=== PATIENT | female | born 1985 | race American Indian/Alaskan Native ===

== ENCOUNTER 2018-11-01 16:44 | Emergency (ER) | payer SELFPAY ==
--- NOTE | 2018-11-01 17:21 | Emergency Department Report ---
Blank Doc - Documentation Documentation: 33-year-old female that presents with syncopal episdoe with headache and dizzi ness. This initial assessment/diagnostic orders/clinical plan/treatment(s) is/are subject to change based on patient's health status, clinical progression and re- assessment by fellow clinical providers in the ED. Further treatment and workup at subsequent clinical providers discretion. Patient/guardians urged not to elope from the ED as their condition may be serious if not clinically assessed and managed. Initial orders include: 1- Patient sent to [facility] for further evaluation and treatment 2- EKG 3- labs 4- CT head
[2018-11-01 17:23] VITALS: BP 108/69
[2018-11-01 18:01] LABS: BUN/Creatinine Ratio 15; Blood Urea Nitrogen 9 mg/dL (7-17); Calcium 9.1 mg/dL (8.4-10.2); Hemolysis Index 0
[2018-11-01 18:35] LABS: Basophils % (Auto) 0.4 % (0.0-1.8); Eosinophils # (Auto) 0.1 K/mm3 (0.0-0.4); Eosinophils % (Auto) 2.7 % (0.0-4.3); Hematocrit 30.8 % (30.3-42.9); Hemoglobin 9.7 gm/dl (10.1-14.3); Lymphocytes # (Auto) 1.3 K/mm3 (1.2-5.4); Lymphocytes % (Auto) 33.2 % (13.4-35.0); Mean Corpuscular HGB Conc 32 % (30-34); Mean Corpuscular Volume 72 fl (79-97); Monocytes # (Auto) 0.3 K/mm3 (0.0-0.8); Monocytes % (Auto) 8.9 % (0.0-7.3); Platelet Count 224 K/mm3 (140-440); Red Cell Distribution Width 17.3 % (13.2-15.2)
--- NOTE | 2018-11-01 19:24 | Cat Scan Report ---
CT head/brain wo con INDICATION: Syncope. TECHNIQUE: Routine CT head without contrast. All CT scans at this location are performed using CT dos e reduction for ALARA by means of automated exposure control. COMPARISON: None. FINDINGS: BRAIN / INTRACRANIAL CONTENTS: No acute hemorrhage, mass effect, midline shift, or hydrocephalus. No appreciable acute large territorial or lacunar infarct. No chronic infarct or focal atrophy. Normal b rain volume and ventricular/sulcal size for age. ORBITS: No significant abnormality of visualized orbits. SINUSES / MASTOIDS: No significant abnormality of visualized sinuses and mastoid air cells. ADDITIONAL FINDINGS: None. IMPRESSION: 1. No acute intracranial abnormality. Signer Name: Christopher Amaya MD Signed: 11/01/2018 7:20 PM Workstation Name: [id number]
[2018-11-01] MEDS ORDERED: ANTIVERT PO ONE (19:44)
[2018-11-01] MEDS ORDERED: NACL 0.9% 1000 ML 1,000 ML IV ONE (19:44)
--- NOTE | 2018-11-01 20:16 | XRay Report ---
CHEST 2 VIEWS INDICATION / CLINICAL INFORMATION: syncope. COMPARISON: None available. FINDINGS: SUPPORT DEVICES: None. HEART / MEDIASTINUM: No significant abnormality. LUNGS / PLEURA: No significant pulmonary or pleural abnormality. No pneumothorax. ADDITIONAL FINDINGS: No significant additional findings. IMPRESSION: 1. No acute findings. Signer Name: Von Garcia MD Signed: 11/01/2018 8:12 PM Workstation Name: [id number]
[2018-11-01 20:28] LABS: INR 1.03 (0.87-1.13); Partial Thromboplastin Time 26.9 Sec. (24.2-36.6)
--- NOTE | 2018-11-01 23:23 | Emergency Department Report ---
ED Dizziness HPI - General Chief Complaint: Syncope Stated Complaint: HEADACHE/ DIZZNESS Time Seen by Provider: 11/01/18 17:20 Source: patient Mode of arrival: Ambulatory Limitations: No Limitations - History of Present Illness Initial Comments: Patient is a 33-year-old -I[place] female with a history of chronic iron deficiency anemia and does not take any iron tablets at home because of noncompliance presents to the ED with complaint of acute onset persistent dizziness, lightheadedness and headache for the last 3 days after a sudden syncopal episode while standing in the hot sun 3 days ago. Patient states that she was talking to one of her friends while standing on the road by her [place] in the hot [place] when she suddenly "passed out" which was witnessed by her friend who subsequently took her to the house where she regained consciousness and drank cold water administered by her . Patient states that she has been having persistent intermittent dizziness, headache and lightheadedness since she suffered syncope. Patient denies chest pain, loss of consciousness, change in vision, shortness of breath, fever, chills, cough, nausea, vomiting abdominal pain, neck pain, seizures, back pain, or altered mental status and lack of a ppetite. Patient states that she was prescribed iron tablets "a long time ago" because of her chronic iron deficiency anemia but that she has not been able to take his medications because the medications make her nauseous. Patient also states that she has had 2 have to blood transfusion at some point in the past. Complaint: dizziness, lightheadedness, near syncope (syncope episode 3 days ago), other (Headache) -: Sudden, days(s) (3) Timing: sudden onset Description: sense of movement, "room spinning", lightheadedness, other (syncope 3 days ago) History of Same: Yes History of Trauma: Yes (head injury) Severity: severe Improves With: nothing Worsens With: movement, position Associated Symptoms: denies other symptoms, syncope. denies: ataxia, chest pain, confusion, cough, diaphoresis, fever/chills, loss of appetite, malaise, rash, seizure, shortness of breath, weakness, other - Related Data Previous Rx's Medication Instructions Recorded Last Taken Type Ferrous Sulfate [Ferrous Sulfate 324 mg PO DAILY #60 tablet. 11/01/18 Unknown Rx 324 MG] Meclizine [Antivert] 25 mg PO Q8H PRN #30 tablet 11/01/18 Unknown Rx Ondansetron [Zofran ODT TAB] 8 mg PO Q8HR #30 tab.rapdis 11/01/18 Unknown Rx Allergies Allergy/AdvReac Type Severity Reaction Status Date / Time No Known Allergies Allergy Unverified 11/01/18 16:48 ED Review of Systems ROS: Stated complaint: HEADACHE/ DIZZNESS Other details as noted in HPI Constitutional: malaise, weakness. denies: chills, fever Eyes: denies: eye pain, eye discharge, vision change ENT: denies: ear pain, throat pain Respiratory: denies: cough, shortness of breath, wheezing Cardiovascular: denies: chest pain, palpitations Endocrine: no symptoms reported Gastrointestinal: denies: abdominal pain, nausea, vomiting, diarrhea Genitourinary: denies: urgency, dysuria, discharge Musculoskeletal: denies: back pain, joint swelling, arthralgia Skin: denies: rash, lesions Neurological: headache, vertigo, other (dizziness; syncope). denies: weakness, paresthesias Psychiatric: denies: anxiety, depression Hematological/Lymphatic: denies: easy bleeding, easy bruising ED Past Medical Hx - Past Medical History Previous Medical History?: Yes Additional medical history: Anemia - Surgical History Past Surgical History?: Yes Additional Surgical History: Tubal ligation - Social History Smoking Status: Never Smoker Substance Use Type: None - Medications Home Medications: Home Medications Medication Instructions Recorded Confirmed Last Taken Type Ferrous Sulfate [Ferrous Sulfate 324 mg PO DAILY #60 tablet. 11/01/18 Unknown Rx 324 MG] Meclizine [Antivert] 25 mg PO Q8H PRN #30 tablet 11/01/18 Unknown Rx Ondansetron [Zofran ODT TAB] 8 mg PO Q8HR #30 tab.rapdis 11/01/18 Unknown Rx ED Physical Exam - General Limitations: No Limitations General appearance: alert, in no apparent distress - Head Head exam: Present: atraumatic, normocephalic, normal inspection - Eye Eye exam: Present: normal appearance, PERRL, EOMI Pupils: Present: normal accommodation - ENT ENT exam: Present: normal exam, normal orophraynx, mucous membranes moist, TM's normal bilaterally, normal external ear exam - Neck Neck exam: Present: normal inspection, full ROM - Respiratory Respiratory exam: Present: normal lung sounds bilaterally. Absent: respiratory distress, wheezes, rhonchi, stridor, chest wall tenderness, accessory muscle use, decreased breath sounds, prolonged expiratory - Cardiovascular Cardiovascular Exam: Present: regular rate, normal rhythm, normal heart sounds. Absent: systolic murmur, diastolic murmur, rubs, gallop - GI/Abdominal GI/Abdominal exam: Present: soft, normal bowel sounds. Absent: tenderness, guarding, rebound, hyperactive bowel sounds, hypoactive bowel sounds, organomegaly - Extremities Exam Extremities exam: Present: normal inspection, full ROM, normal capillary refill - Back Exam Back exam: Present: normal inspection, full ROM. Absent: CVA tenderness (L) - Neurological Exam Neurological exam: Present: alert, oriented X3, CN II-XII intact, normal gait, reflexes normal - Psychiatric Psychiatric exam: Present: normal affect, normal mood - Skin Skin exam: Present: warm, dry, intact, normal color. Absent: rash ED Course Vital Signs 11/01/18 17:21 Temperature 98.4 F Pulse Rate 83 Respiratory 16 Rate Blood Pressure 108/69 [Left] O2 Sat by Pulse 100 Oximetry - Reevaluation(s) Reevaluation #1: 11/02/18 01:55 This is a 33-year-old Afro-Icelandic female with a history of chronic iron deficiency anemia with blood transfusions in the past who presents to the ED with complaint of acute onset lightheadedness, dizziness, headache after a s dewey syncopal episode 3 days ago. In the ED, patient is alert and oriented 3 and is not in distress with normal vital signs. The lab test results show hemoglobin of 9.7, hematocrit of 30.8 and MCV of 72. The rest of the lab test results are nonactionable including d-dimer, troponin levels, PT/INR and PTT. The chest x-ray shows no acute could've pulmonary abnormalities. The head CT scan without contrast shows no acute intracranial abnormalities or hemorrhage. The patient's symptoms are likely due to postconcussion syndrome based on the patient's recent syncopal episode. Patient was treated in the ED for dizziness and pain and also received 1 L normal saline IV bolus. On reevaluation, patient's symptoms are well controlled with medications. Patient was discharged home and advised to follow-up with her primary care physician in 3-5 days for reevaluation. Patient was discharged home on iron tablets and meclizine prescriptions. Patient was advised to return to the ED immediately if symptoms get worse. 11/02/18 01:56 11/02/18 01:57 11/02/18 01:59 11/02/18 02:00 ED Medical Decision Making - Lab Data Result diagrams: 11/01/18 17:31 11/01/18 17:31 - Radiology Data Radiology results: report reviewed, image reviewed Chest x-ray shows no acute cardiopulmonary abnormalities. Head CT scan without contrast shows no acute intracranial abnormalities or hemorrhage. - Medical Decision Making This is a 33-year-old Afro-I[place]ic female with a history of chronic iron deficiency anemia with blood transfusions in the past who presents to the ED with complaint of acute onset lightheadedness, dizziness, headache after a single syncopal episode 3 days ago. In the ED, patient is alert and oriented 3 and is not in distress with normal vital signs. The lab test results show hemoglobin of 9.7, hematocrit of 30.8 and MCV of 72. The rest of the lab test results are nonactionable including d-dimer, troponin levels, PT/INR and PTT. The chest x-ray shows no acute could've pulmonary abnormalities. The head CT scan without contrast shows no acute intracranial abnormalities or hemorrhage. The patient's symptoms are likely due to postconcussion syndrome based on the patient's recent syncopal episode. Patient was treated in the ED for dizziness and pain and also received 1 L normal saline IV bolus. On reevaluation, patient's symptoms are well controlled with medications. Patient was discharged home and advised to follow-up with her primary care physician in 3-5 days for reevaluation. Patient was discharged home on iron tablets and meclizine prescriptions. Patient was advised to return to the ED immediately if symptoms get worse. - Differential Diagnosis dizziness; vertigo; syncope; postconcussion syndrome; Chronic anemia Critical care attestation.: If time is entered above; I have spent that time in minutes in the direct care of this critically ill patient, excluding procedure time. ED Disposition Clinical Impression: Dizziness and giddiness, Syncope and collapse, Chronic iron deficiency anemia, Post-concussion vertigo Disposition: DC-01 TO HOME OR SELFCARE Is pt being admited?: No Does the pt Need Aspirin: No Condition: Stable Instructions: Syncope (ED), Iron Deficiency Anemia (ED), Dizziness (ED) Additional Instructions: Take medications with food, drink plenty of fluids and follow-up with your primary care physician in 7-10 days for reevaluation. Return to the ED immediately if symptoms get worse. Prescriptions: Meclizine [Antivert] 25 mg PO Q8H PRN #30 tablet PRN Reason: dizziness Ferrous Sulfate [Ferrous Sulfate 324 MG] 324 mg PO DAILY #60 tablet. Ondansetron [Zofran ODT TAB] 8 mg PO Q8HR #30 tab.[place] Referrals: PRIMARY CARE, [Primary Care Provider] - 3-5 Days Forms: Accompanied Note, Work/School Release Form(ED) Time of Disposition: 23:20 Print Language: GUAMANIAN
[2018-11-02 00:23] LABS: Bilirubin,Urine NEG (Negative); Blood,Urine LG (Negative); Color,Urine Straw (Yellow); Protein,Urine <15 mg/dL mg/dL (Negative); Urobilinogen,Urine < 2.0 mg/dL (<2.0)
== END 2018-11-01 23:40 | disposition home or self-care (01) ==
LOC: ED 16:44
DX: D50.9 Iron deficiency anemia, unspecified (principal); F07.81 Postconcussional syndrome; R55 Syncope and collapse; Z79.899 Other long term (current) drug therapy; Z98.51 Tubal ligation status
CPT/HCPCS: 36415; 70450; 71046; 80048; 81001; 84484; 84703; 85025; 85379; 85610; 85730; 93005; 93010; 96360; 99284; J7030

== ENCOUNTER 2020-06-23 14:07 | Emergency (ER) | payer OTHER ==
[2020-06-23 14:47] LABS: Basophils % (Auto) 0.6 % (0.0-1.8); Eosinophils # (Auto) 0.1 K/mm3 (0.0-0.4); Eosinophils % (Auto) 1.9 % (0.0-4.3); Hematocrit 34.2 % (30.3-42.9); Lymphocytes # (Auto) 1.9 K/mm3 (1.2-5.4); Lymphocytes % (Auto) 32.6 % (13.4-35.0); Mean Corpuscular HGB Conc 32 % (30-34); Mean Corpuscular Volume 77 fl (79-97); Monocytes # (Auto) 0.4 K/mm3 (0.0-0.8); Monocytes % (Auto) 6.1 % (0.0-7.3); Platelet Count 198 K/mm3 (140-440); Red Blood Count 4.44 M/mm3 (3.65-5.03); Red Cell Distribution Width 13.4 % (13.2-15.2)
[2020-06-23 16:05] LABS: Alanine Aminotransferase 16 units/L (7-56); Albumin 4.4 g/dL (3.9-5); Blood Urea Nitrogen 8 mg/dL (7-17); Calcium 8.9 mg/dL (8.4-10.2); Hemolysis Index 15
[2020-06-23 16:07] LABS: BUN/Creatinine Ratio 16
[2020-06-23 17:12] LABS: Bilirubin,Urine NEG (Negative); Blood,Urine NEG (Negative); Color,Urine Colorless (Yellow); Protein,Urine <15 mg/dL mg/dL (Negative); Urobilinogen,Urine < 2.0 mg/dL (<2.0); WBC,Urine < 1.0 /HPF (0.0-6.0)
--- NOTE | 2020-06-23 18:49 | Emergency Department Report ---
ED General Adult HPI - General Chief complaint: Nausea/Vomiting/Diarrhea Stated complaint: FEELING FAINT/VOMITING Time Seen by Provider: 06/23/20 17:37 Source: patient Mode of arrival: Ambulatory Limitations: No Limitations - History of Present Illness Initial comments: 35-year-old female with a past medical history of anemia and blood transfusion secondary to anemia presents to the ER today with complaints of nausea, vomiting, cough and shortness of breath. Patient states that his symptoms started last week. She states that she been having intermittent episodes of nausea and vomiting, dry cough, intermittent shortness of breath but the shortness of breath got worse today and she started with upper chest pain. She states that she has had some URI symptoms but no fever. She reports generalized weakness and fatigue. She denies any associated abdominal pain. She denies any diarrhea. She denies any UTI or abnormal vaginal symptoms. Her last menstrual cycle started June 13 and ended this past . She denies any lower extremity swelling or calf pain. She states that she has a history of heavy vaginal bleeding which is the cause of her anemia. 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 Patient states that she last had a blood transfusion 2004. Other than the history of anemia she denies any other significant past medical history. She denies tobacco use. She states that she went to urgent care when the symptoms first started and was diagnosed with bronchitis and she was given inhaler which she states she has been using. Complaint: n/v/cough URI symptoms -: week(s) (1) - Related Data Previous Rx's Medication Instructions Recorded Last Taken Type Ferrous Sulfate [Ferrous Sulfate 324 mg PO DAILY #60 tablet.dr 11/01/18 Unknown Rx 324 MG] Meclizine [Antivert] 25 mg PO Q8H PRN #30 tablet 11/01/18 Unknown Rx Albuterol Sulfate [Albuterol 0.63% 0.63 mg IH Q6HR PRN #30 vial 06/23/20 Unknown Rx NEBS] Ondansetron [Zofran ODT TAB] 8 mg PO Q8HR #30 tab.rapdis 06/23/20 Unknown Rx predniSONE [Deltasone] 20 mg PO QDAY #10 tab 06/23/20 Unknown Rx Allergies Allergy/AdvReac Type Severity Reaction Status Date / Time No Known Allergies Allergy Unverified 11/01/18 16:48 ED Review of Systems ROS: Stated complaint: FEELING FAINT/VOMITING Other details as noted in HPI Comment: All other systems reviewed and negative Constitutional: denies: chills, fever Eyes: denies: eye pain, eye discharge, vision change ENT: denies: ear pain, throat pain, dental pain, hearing loss, epistaxis, congestion Respiratory: cough, shortness of breath. denies: wheezing Cardiovascular: as per HPI, chest pain. denies: palpitations, dyspnea on exertion, orthopnea, edema, syncope, paroxysmal nocturnal dyspnea Endocrine: no symptoms reported. denies: excessive sweating, flushing, intolerance to cold, intolerance to heat, increased hunger, increased thirst, increased urine, unexplained weight gain, unexplained weight loss Gastrointestinal: nausea, vomiting. denies: abdominal pain, diarrhea, constipation, hematemesis, hematochezia Genitourinary: denies: urgency, dysuria, frequency, hematuria, discharge, abnormal menses, dyspareunia Musculoskeletal: denies: back pain, joint swelling, arthralgia Skin: denies: rash, lesions, change in color, change in hair/nails, pruritus Neurological: weakness. denies: headache, numbness, paresthesias, confusion, abnormal gait, vertigo Psychiatric: denies: anxiety, depression, auditory hallucinations, visual hallucinations, homicidal thoughts, suicidal thoughts Hematological/Lymphatic: denies: easy bleeding, easy bruising, swollen glands ED Past Medical Hx - Past Medical History Previous Medical History?: No Additional medical history: Anemia - Surgical History Additional Surgical History: Tubal ligation - Social History Smoking Status: Never Smoker Substance Use Type: None - Medications Home Medications: Home Medications Medication Instructions Recorded Confirmed Last Taken Type Ferrous Sulfate [Ferrous Sulfate 324 mg PO DAILY #60 tablet. 11/01/18 Unknown Rx 324 MG] Meclizine [Antivert] 25 mg PO Q8H PRN #30 tablet 11/01/18 Unknown Rx Albuterol Sulfate [Albuterol 0.63% 0.63 mg IH Q6HR PRN #30 vial 06/23/20 Unknown Rx NEBS] Ondansetron [Zofran ODT TAB] 8 mg PO Q8HR #30 tab.rapdis 06/23/20 Unknown Rx predniSONE [Deltasone] 20 mg PO QDAY #10 tab 06/23/20 Unknown Rx ED Physical Exam - General Limitations: No Limitations General appearance: alert, in no apparent distress - Head Head exam: Present: atraumatic, normocephalic - Eye Eye exam: Present: normal appearance, PERRL, EOMI Pupils: Present: normal accommodation - ENT ENT exam: Present: normal exam, mucous membranes moist - Neck Neck exam: Present: normal inspection, full ROM. Absent: meningismus - Respiratory Respiratory exam: Present: normal lung sounds bilaterally. Absent: respiratory distress, wheezes, rales, rhonchi - Cardiovascular Cardiovascular Exam: Present: regular rate, normal rhythm, normal heart sounds - GI/Abdominal GI/Abdominal exam: Absent: soft, tenderness, guarding, rebound - Extremities Exam Extremities exam: Present: normal inspection. Absent: pedal edema, calf tenderness - Neurological Exam Neurological exam: Present: alert, oriented X3, CN II-XII intact, normal gait. Absent: motor sensory deficit, reflexes normal - Psychiatric Psychiatric exam: Present: normal affect, normal mood - Skin Skin exam: Present: intact ED Course Vital Signs 06/23/20 06/23/20 14:21 19:40 Temperature 98.3 F Pulse Rate 65 63 Respiratory 18 18 Rate Blood Pressure 110/83 123/75 [Right] O2 Sat by Pulse 99 97 Oximetry ED Medical Decision Making - Lab Data Result diagrams: 06/23/20 14:36 06/23/20 14:36 - EKG Data EKG shows normal: sinus rhythm Rate: normal (60) - EKG Data Interpretation: normal EKG - Radiology Data Radiology results: report reviewed Patient: LISA LUGO MR#: [id number] 50 : 1985 Acct:[id number] Age/Sex: 35 / F ADM Date: 06/23/20 Loc: ED Attending Dr: Ordering Physician: MONICA DON Date of Service: 06/23/20 Procedure(s): XR chest routine 2V Accession Number(s): [id number] cc: MONICA DON Fluoro Time In Minutes: XR chest routine 2V INDICATION / CLINICAL INFORMATION: cough/sob. COMPARISON: None available. FINDINGS: SUPPORT DEVICES: None. HEART /PULMONARY VASCULATURE: No significant abnormality. LUNGS / PLEURA: No significant pulmonary or pleural abnormality. No pneumothorax. ADDITIONAL FINDINGS: No significant additional findings. IMPRESSION: 1. No acute findings. Signer Name: Ricki Aguayo MD Signed: 06/23/2020 6:51 PM Workstation Name: [id number] Transcribed By: SADI Dictated By: RICKI AGUAYO MD Electronically Authenticated By: RICKI AGUAYO MD Signed Date/Time: 06/23/201850 DD/ 50 TD/TT: - Medical Decision Making 1950: Labs reviewed/cxr/EKG reviewed. Nothing acute on work up today. Repeat VS stable. Pt is well appearing and not toxic and not in any significant distress. She is neurologically intact. No active vomiting during stay. Her history, exam, diagnostic testing and current condition do not suggest that this patient is having acute myocardial infarction (Heart score 0), significant arrhythmia, unstable angina, esophageal perforation, pulmonary embolism (PERC 0), aortic dissection, pneumothorax, severe pneumonia, metabolic abnormality, severe dehydration, sepsis or other significant pathology that would warrant further testing, continued ED treatment, admission or cardiology or other specialist consultation at this time. Discussed lab and imaging EKG results with patient. Discussed suspected diagnosis and treatment plan with patient and spouse. Recommend follow-up with primary care doctor this week. Patient was stable at time of discharge. Critical care attestation.: If time is entered above; I have spent that time in minutes in the direct care of this critically ill patient, excluding procedure time. ED Disposition Clinical Impression: Viral syndrome, Bronchitis Disposition: DC-01 TO HOME OR SELFCARE Is pt being admited?: No Does the pt Need Aspirin: No Condition: Stable Instructions: Viral Illness, Adult, Acute Bronchitis, Adult, Chronic Bronchitis (ED) Additional Instructions: Take the zofran as prescribed to help with nausea and vomiting. Take the prednisone and continue using the inhaler to help with bronchitis. I recommend t rying to drink lots of fluids to maintain hydration. Follow up with your PCP this week. Return to ED if worse. Prescriptions: Albuterol Sulfate [Albuterol 0.63% NEBS] 0.63 mg IH Q6HR PRN #30 vial PRN Reason: Wheezing predniSONE [Deltasone] 20 mg PO QDAY #10 tab Ondansetron [Zofran ODT TAB] 8 mg PO Q8HR #30 tab.rapdis Referrals: GAIL HINES MD [Staff Physician] - 3-5 Days Forms: Work/School Release Form(ED) Time of Disposition: 19:32
--- NOTE | 2020-06-23 18:56 | XRay Report ---
XR chest routine 2V INDICATION / CLINICAL INFORMATION: cough/sob. COMPARISON: None available. FINDINGS: SUPPORT DEVICES: None. HEART /PULMONARY VASCULATURE: No significant abnormality. LUNGS / PLEURA: No significant pulmonary or pleural abnormality. No pneumothorax. ADDITIONAL FINDINGS: No significant additional findings. IMPRESSION: 1. No acute findings. Signer Name: Rohit Aguayo MD Signed: 06/23/2020 6:51 PM Workstation Name: [id number]
[2020-06-23] MEDS ORDERED: ONDANSETRON 4 MG ODT TAB PO ONE (19:33)
[2020-06-23 19:42] VITALS: BP 123/75
--- NOTE | 2020-06-26 17:16 | Electrocardiograph Report ---
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
== END 2020-06-23 20:09 | disposition home or self-care (01) ==
LOC: ED 14:07
DX: J40 Bronchitis, not specified as acute or chronic (principal); B34.9 Viral infection, unspecified; Z98.51 Tubal ligation status; Z79.899 Other long term (current) drug therapy
CPT/HCPCS: 36415; 71046; 80053; 81001; 83690; 84484; 85025; 93005